=== PATIENT | male | born 1945 | race Caucasian/White ===

== ENCOUNTER 2021-08-05 18:49 | Observation (INO) ==
[2021-08-05] MEDS ORDERED: Aspirin 81 MG TAB.CHEW PO STA (20:14)
[2021-08-06] MEDS ORDERED: Perflutren Lipid Microsphere 1.3 ML in 0.9 % Sodium Chloride 8.7 ML IVP PRN (00:34)
[2021-08-06] MEDS ORDERED: Nitroglycerin 0.4 MG TAB.SUBL SL PRN (00:36)
[2021-08-06] MEDS ORDERED: Naloxone 0.4 MG/ML INJ IVP PRN (00:39)
[2021-08-06] MEDS ORDERED: Acetaminophen 325 MG TABLET PO PRN (00:46)
[2021-08-06] MEDS ORDERED: Ondansetron 4 MG/2 ML VIAL IVP PRN (00:46)
[2021-08-06] MEDS ORDERED: *HR* Dextrose 50 % in Water (Syg) 50 ML SYRINGE IVP PRN (00:51)
[2021-08-06] MEDS ORDERED: D5% in Water 1,000 ML IVC PRN (00:51)
[2021-08-06] MEDS ORDERED: Dextrose Gel 15 GM/37.5 ML TUBE PO PRN ×2 (00:51)
[2021-08-06] MEDS ORDERED: *HR* Heparin 5,000 UNIT/ML VIAL IVP PRN ×2 (01:52)
[2021-08-06] MEDS ORDERED: Heparin 25,000UNIT/250ML 1/2NS 25,000 UNIT/250 ML IV.SOLN IVC SCH (02:00)
[2021-08-06] MEDS: Heparin 25,000UNIT/250ML 1/2NS 25,000 UNIT/250 ML IV.SOLN IVC SCH ×2 (02:33→22:10)
[2021-08-06 04:58] LABS: INR 1.1; Prothrombin Time 12.3 Seconds (9.4-12.1)
[2021-08-06 05:00] LABS: Hematocrit 45.3 % (37.5-50.1); Hemoglobin 15.1 g/dL (12.9-16.9); Mean Corpuscular HGB Conc 33.3 g/dL (31.6-35.5); Mean Corpuscular Hemoglobin 31.7 pg (28.0-33.3); Mean Corpuscular Volume 95.2 fL (83.0-100.0); Mean Platelet Volume 11.2 fL (9.4-12.4); Platelet Count 170 K/mcL (140-400); Red Blood Count 4.76 M/mcL (4.19-5.50); Red Cell Distribution Width 13.5 % (11.5-14.5); White Blood Count 15.9 K/mcL (4.3-11.1)
[2021-08-06 05:01] LABS: Activated Partial Thrombo Time 40.6 Seconds (26.0-36.0)
[2021-08-06 05:17] LABS: BUN/Creatinine Ratio 22 (6-26); Blood Urea Nitrogen 24 mg/dL (8-23); Calcium 8.7 mg/dL (8.6-10.3); Carbon Dioxide 26 mEq/L (23-29); Chloride 103 mEq/L (98-107); Chol/HDL Ratio 3.2 (0-4.9); Cholesterol 104 mg/dL (< 200); Glucose 191 mg/dL (70-105); HDL Cholesterol 33 mg/dL (40-59); Magnesium 1.9 mg/dL (1.6-2.6); Osmolality,Calculated 295 (280-300); Potassium 3.5 mEq/L (3.5-5.1); Sodium 138 mEq/L (136-145); Triglycerides 157 mg/dL (< 150); eGFR For African Americans > 60 (> 60); eGFR For Non-African Americans > 60 (> 60)
[2021-08-06 05:18] LABS: LDL Cholesterol,Calculated 40 mg/dL (< 100)
[2021-08-06] MEDS: Insulin LISPRO 300 UNITS/3 ML VIAL SUBQ SCH ×3 (06:24→19:49)
[2021-08-06 07:43] LABS: Estimated Average Glucose 163 mg/dl; Hemoglobin A1C 7.3 %
[2021-08-06] MEDS: Aspirin Enteric Coated 81 MG Tablet PO SCH (08:01)
[2021-08-06 09:21] LABS: Bilirubin,Urine Negative (Negative); Blood,Urine Negative (Negative); Clarity,Urine Clear (Clear); Color,Urine Light-Yellow (Yellow); Glucose,Urine (UA) >=1000 mg/dL (Normal); Ketones,Urine Negative (Negative); Leukocyte Esterase,Urine Negative (Negative); Mucus,Urine Few per lpf (None-Few); Nitrite,Urine Negative (Negative); PH,Urine 5.5 pH Units (5.0-8.0); Protein,Urine Trace mg/dL (Neg-Trace); RBC,Urine 0-3 per hpf (0-3); Specific Gravity,Urine > 1.030 (1.010-1.025); Squamous Epithelial Cell,Urine Few per hpf (None-Few); Urobilinogen,Urine Normal (Normal); WBC,Urine 0-3 per hpf (0-3)
[2021-08-06] MEDS: Metoprolol XL (24 HR) Succ 50 MG TAB.ER.24H PO SCH (20:19)
[2021-08-07] MEDS: Insulin LISPRO 300 UNITS/3 ML VIAL SUBQ SCH ×3 (00:35→14:57)
[2021-08-07] MEDS ORDERED: Regadenoson 0.4 MG/5 ML SYRINGE IVP ONE (06:20)
[2021-08-07] MEDS ORDERED: amLODIPine 5 MG TABLET PO SCH (09:00)
[2021-08-07] MEDS ORDERED: Spironolactone 25 MG TABLET PO SCH (09:00)
[2021-08-07] MEDS ORDERED: Furosemide 40 MG TABLET PO SCH (09:00)
[2021-08-07] MEDS ORDERED: Magnesium Oxide 400 MG TABLET PO SCH (09:00)
[2021-08-07] MEDS: Aspirin Enteric Coated 81 MG Tablet PO SCH (09:47)
[2021-08-07] MEDS: Metoprolol XL (24 HR) Succ 50 MG TAB.ER.24H PO SCH (09:47)
[2021-08-07 10:30] LABS: Hematocrit 46.6 % (37.5-50.1); Hemoglobin 15.1 g/dL (12.9-16.9); Mean Corpuscular HGB Conc 32.4 g/dL (31.6-35.5); Mean Corpuscular Hemoglobin 30.6 pg (28.0-33.3); Mean Corpuscular Volume 94.5 fL (83.0-100.0); Mean Platelet Volume 10.7 fL (9.4-12.4); Platelet Count 177 K/mcL (140-400); Red Blood Count 4.93 M/mcL (4.19-5.50); Red Cell Distribution Width 13.4 % (11.5-14.5); White Blood Count 15.5 K/mcL (4.3-11.1)
[2021-08-07 10:49] LABS: BUN/Creatinine Ratio 20 (6-26); Blood Urea Nitrogen 17 mg/dL (8-23); Calcium 8.9 mg/dL (8.6-10.3); Carbon Dioxide 27 mEq/L (23-29); Chloride 103 mEq/L (98-107); Glucose 145 mg/dL (70-105); Osmolality,Calculated 286 (280-300); Potassium 3.7 mEq/L (3.5-5.1); Sodium 136 mEq/L (136-145); eGFR For African Americans > 60 (> 60); eGFR For Non-African Americans > 60 (> 60)
[2021-08-07 11:11] VITALS: BP 136/51; PULSE 72; TEMP 97.5; O2SAT 96
== END 2021-08-07 15:08 | disposition home or self-care (01) ==
LOC: 3BNU 18:49 → EMEROOARM 18:49 → SUATTDRO 20:39 → 3BNU 21:04
PROVIDERS: ADMIT Student in an Organized Health Care Education/Training Program; ATTEND Family Medicine